=== PATIENT | female | born 1985 | race Two or more races ===

== ENCOUNTER 2022-09-22 11:09 | Emergency (ER) | payer OTHER ==
[~2022-09-22] VITALS: Ht 165.1 cm; Wt 114.3 kg
[2022-09-22 11:26] VITALS: BP 121/61
--- NOTE | 2022-09-22 11:52 | NUR ---
37 Y/O FEMALE BIB SELF C/O SORE THROAT X 1 WEEK, PER PT SHE ISNT ABLE TO EAT X3 DAYS. DENIES ANY COUGH OR FEVER. NOTED SWOLLEN TONSILS, NO EXUDATE NKA PMH: DENIES
[2022-09-22] MEDS ORDERED: DEXAMETHASONE 10 MG/ML VIAL IM ONE (12:10)
[2022-09-22] MEDS ORDERED: KETOROLAC 30 MG/ML VIAL IM ONE (12:10)
[2022-09-22] MEDS ORDERED: DEXAMETHASONE 10 MG/ML VIAL ONE (13:18)
[2022-09-22] MEDS ORDERED: KETOROLAC 30 MG/ML VIAL ONE (13:19)
[2022-09-22] MEDS ORDERED: MECL-303 PO (13:43)
[2022-09-22] MEDS ORDERED: AMOX1TAB8 PO (13:43)
[2022-09-22] MEDS ORDERED: IBUP-2213 PO (13:43)
[2022-09-22] MEDS ORDERED: BENZ-300 PO (13:43)
--- NOTE | 2022-09-22 13:58 | NUR ---
DC W/O PAPERWORK, AMOX-CLAV [phone], CEPACOL, MECLEZINE AND MOTRIN SENT TO [facility] IN [facility]
== END 2022-09-22 13:58 | disposition home or self-care (01) ==
LOC: MED 11:09
DX: J02.9 Acute pharyngitis, unspecified (principal); Z79.899 Other long term (current) drug therapy
CPT/HCPCS: 81025; 87081; 96372; 99284; J1100; J1885

== ENCOUNTER 2022-09-24 14:12 | Emergency (ER) | payer OTHER ==
[~2022-09-24] VITALS: Ht 165.1 cm; Wt 111.1 kg
[~2022-09-24 14:12] MED LIST: AMOX1TAB8 PO; BENZ-300 PO; IBUP-2213 PO; MECL-303 PO
[2022-09-24 14:42] VITALS: BP 108/70
--- NOTE | 2022-09-24 14:47 | NUR ---
TO LOBBY AWAIT ROOM ASSIGNMENT.
--- NOTE | 2022-09-24 14:47 | NUR ---
PT STATES ALSO HAS BILAT EAR. STATES "I DIDN'T TAKE TYLENOL BECAUSE I ALMOST , IT CHOKED ME THIS MORNING". ENCOURAGED PASSIVE COOLING MEASURES.
[2022-09-24] MEDS ORDERED: DEXAMETHASONE 10 MG/ML VIAL IVP ONE (15:10)
[2022-09-24] MEDS ORDERED: KETOROLAC 15 MG/ML VIAL IVP ONE (15:10)
[2022-09-24] MEDS ORDERED: AMPICILLIN/SULBACTAM 3 GM in NACL 0.9% 100 ML IV ONE (15:10)
--- NOTE | 2022-09-24 17:02 | NUR ---
TO ER BED 5
[2022-09-24] MEDS ORDERED: DEXAMETHASONE 10 MG/ML VIAL ONE (17:47)
[2022-09-24] MEDS ORDERED: AMPICILLIN/SULBACTAM 3 GM VIAL ONE (17:47)
[2022-09-24] MEDS ORDERED: KETOROLAC 15 MG/ML VIAL ONE (17:47)
[2022-09-24] MEDS ORDERED: AMOX100P6 PO (17:53)
[2022-09-24] MEDS ORDERED: DEC4 PO (17:53)
[2022-09-24] MEDS ORDERED: NACL 0.9% 1,000 ML IV ONE (18:05)
--- NOTE | 2022-09-24 19:31 | NUR ---
Assumed care of patient. Awake at this time, IV fluids running. No s/s pain or discomfort.
[2022-09-24 19:47] VITALS: BP 108/70
--- NOTE | 2022-09-24 19:47 | NUR ---
Patient discharged with v/s stable. Written and verbal after care instructions given and explained. New rx amox-clav and decadron. Patient verbalized understanding. Ambulatory with steady gait. All questions addressed prior to discharge. Advised to follow up with PMD.
== END 2022-09-24 19:47 | disposition home or self-care (01) ==
LOC: MED 14:12
DX: J03.90 Acute tonsillitis, unspecified (principal); Z79.899 Other long term (current) drug therapy
CPT/HCPCS: 81025; 96365; 96375; 99284; J0295; J1100; J1885; J7030; 96361